=== PATIENT | male | born 1950 | race Caucasian/White ===

== ENCOUNTER 2020-10-23 09:04 | Inpatient (IN) | payer MEDICARE ==
[~2020-10-23] VITALS: Ht 182.9 cm; Wt 108.0 kg
[2020-10-23 09:39] LABS: BASOPHILS % (AUTO) 0.1 % (0.0-5.0); EOSINOPHILS % (AUTO) 2.1 % (0.0-8.0); LYMPHOCYTES % (AUTO) 7.5 % (21.0-51.0); MEAN CORPUSCULAR HGB CONC 32.5 g/dL (32.0-36.0); MEAN CORPUSCULAR VOLUME 95.3 fL (79-99); MONOCYTES % (AUTO) 7.9 % (3.0-13.0); NEUTROPHILS % (AUTO) 80.9 % (40.0-77.0); NUCLEATED RED BLOOD CELLS 0.2 % (0.0-0.19); PLATELET COUNT (AUTO) 180 K/uL (130-400); RED BLOOD CELL COUNT(AUTO) 1.71 MIL/uL (4.50-6.20); RED CELL DISTRIBUTION WIDTH 13.7 % (11.0-15.5)
[2020-10-23 09:51] LABS: INR 1.3 (0.85-1.15); PROTHROMBIN TIME 13.6 SEC (9.6-11.6)
[2020-10-23 09:57] LABS: POTASSIUM 3.6 mmol/L (3.5-5.1)
[2020-10-23 10:01] LABS: ALBUMIN 2.6 g/dL (3.5-5.0); BILIRUBIN,TOTAL 0.4 mg/dL (0.2-1.0); TOTAL PROTEIN, SERUM 5.6 g/dL (6.0-8.3)
[2020-10-23 10:13] LABS: B-TYPE NATRIURETIC PEPTIDE 117 pg/mL (0-100)
[2020-10-23 10:14] LABS: HEMATOCRIT 16.3 % (42-54)
[2020-10-23] MEDS ORDERED: PANTOPRAZOLE 40 MG/VIAL ONE (10:18)
[2020-10-23 11:03] LABS: ABG BASE EXCESS 0.6 mmol/L (-2.0-3.0); ABG HCO3 23.3 mmol/L (21.0-28.0); ABG OXYGEN SATURATION 96.8 % (95.0-99.0); ABG PCO2 32 mmHg (35-48)
[2020-10-23] MEDS ORDERED: AMOX-429 PO (12:37)
[2020-10-23] MEDS ORDERED: ASPI-1005 PO (12:37)
[2020-10-23] MEDS ORDERED: ISOS30TA92 PO (12:37)
[2020-10-23] MEDS ORDERED: GABA-529 PO (12:37)
[2020-10-23] MEDS ORDERED: APIX2.5T PO (12:37)
[2020-10-23] MEDS ORDERED: METF-446 PO (12:37)
[2020-10-23] MEDS ORDERED: IPRATROPIUM/ALBUTEROL SULFATE 3 ML SOLUTION IH PRN (12:45)
[2020-10-23 14:21] LABS: HEMATOCRIT 22.4 % (42-54)
[2020-10-23 16:22] LABS: APPEARANCE,URINE Clear (CLEAR); BILIRUBIN,URINE Negative (NEGATIVE); COLOR,URINE Yellow (YELLOW); GLUCOSE, URINE (UA) Negative (NEGATIVE); KETONES,URINE Trace mg/dL (NEGATIVE); LEUKOCYTE ESTERASE ,URINE Negative (NEGATIVE); NITRATE,URINE Negative (NEGATIVE); OCCULT BLOOD,URINE Negative (NEGATIVE); PH,URINE 5.5 (5.0-8.0); PROTEIN,URINE Negative (NEGATIVE)
[2020-10-23 18:00] VITALS: BP 127/68
[2020-10-23] MEDS ORDERED: LISI20TA24 PO (18:34)
[2020-10-23 20:00] VITALS: BP 116/61
[2020-10-23 21:28] LABS: HEMATOCRIT 18.7 % (42-54)
[2020-10-23] MEDS: AMOX/CLAV 875/125MG TAB PO SCH (22:00)
[2020-10-23] MEDS: GABAPENTIN 300 MG CAPSULE PO SCH (22:01)
[2020-10-23] MEDS: ACETAMINOPHEN 325 MG TAB PO PRN (22:52)
[2020-10-24] VITALS (22 sets, daily range): BP systolic 100–151; BP diastolic 41–98
[2020-10-24] MEDS: PANTOPRAZOLE SODIUM 80 MG in NS 100ML IVP SCH ×2 (01:38→20:56)
[2020-10-24 07:21] LABS: BASOPHILS % (AUTO) 0.2 % (0.0-5.0); EOSINOPHILS % (AUTO) 3.4 % (0.0-8.0); HEMATOCRIT 23.9 % (42-54); LYMPHOCYTES % (AUTO) 12.1 % (21.0-51.0); MEAN CORPUSCULAR HEMOGLOBIN 29.3 pg (27.0-33.0); MEAN CORPUSCULAR HGB CONC 32.2 g/dL (32.0-36.0); MEAN CORPUSCULAR VOLUME 90.9 fL (79-99); NEUTROPHILS % (AUTO) 74.2 % (40.0-77.0); NUCLEATED RED BLOOD CELLS 0.3 % (0.0-0.19); PLATELET COUNT (AUTO) 149 K/uL (130-400); RED BLOOD CELL COUNT(AUTO) 2.63 MIL/uL (4.50-6.20); RED CELL DISTRIBUTION WIDTH 16.1 % (11.0-15.5); WHITE BLOOD COUNT (AUTO) 9.1 K/uL (4.8-10.8)
[2020-10-24 08:06] LABS: POTASSIUM 3.5 mmol/L (3.5-5.1)
[2020-10-24] MEDS ORDERED: PROPOFOL 10 MG/ML 20ML VIAL IV ONE (08:27)
[2020-10-24] MEDS ORDERED: EPINEPHRINE PF 1MG AMP ONE (08:34)
[2020-10-24] MEDS: GABAPENTIN 300 MG CAPSULE PO SCH ×3 (09:00→20:35)
[2020-10-24] MEDS: AMOX/CLAV 875/125MG TAB PO SCH ×2 (09:00→20:35)
[2020-10-24] MEDS ORDERED: PANTOPRAZOLE 40 MG/VIAL IVP SCH (09:45)
[2020-10-24 14:58] LABS: HEMATOCRIT 22.6 % (42-54)
[2020-10-24] MEDS: ACYCLOVIR 200 MG CAPSULE PO SCH (20:34)
[2020-10-24] MEDS: LISINOPRIL 20 MG TABLET PO SCH (20:35)
[2020-10-24] MEDS ORDERED: HONEY 1 APPL/ML TUBE TP ONE (20:43)
[2020-10-24 21:13] LABS: HEMATOCRIT 22.2 % (42-54)
[2020-10-25 00:33] VITALS: BP 92/57
[2020-10-25 03:39] VITALS: BP 121/47
[2020-10-25 08:00] VITALS: BP 116/47
[2020-10-25] MEDS: GABAPENTIN 300 MG CAPSULE PO SCH ×3 (09:24→22:26)
[2020-10-25] MEDS: ACYCLOVIR 200 MG CAPSULE PO SCH ×3 (09:24→22:26)
[2020-10-25] MEDS: ISOSORBIDE MONO 30MG SR TAB PO SCH (09:24)
[2020-10-25] MEDS: AMOX/CLAV 875/125MG TAB PO SCH ×2 (09:24→22:58)
[2020-10-25 11:38] VITALS: BP 95/51
[2020-10-25] MEDS: PANTOPRAZOLE SODIUM 80 MG in NS 100ML IVP SCH ×2 (12:02→22:27)
[2020-10-25 16:00] VITALS: BP 94/50
[2020-10-25 20:00] VITALS: BP 111/49
[2020-10-25] MEDS ORDERED: COMPOUND IV REFRIGERATED 1 EACH IVSOLN MISC PRN (20:45)
[2020-10-25] MEDS ORDERED: COMPOUND IV MISC 1 EACH IVSOLN MISC PRN (20:45)
[2020-10-25] MEDS: LISINOPRIL 20 MG TABLET PO SCH (22:26)
[2020-10-26] VITALS (7 sets, daily range): BP systolic 94–142; BP diastolic 51–64
[2020-10-26 04:35] LABS: BASOPHILS % (AUTO) 0.2 % (0.0-5.0); EOSINOPHILS % (AUTO) 3.1 % (0.0-8.0); HEMATOCRIT 21.6 % (42-54); MEAN CORPUSCULAR HEMOGLOBIN 29.7 pg (27.0-33.0); MEAN CORPUSCULAR HGB CONC 32.9 g/dL (32.0-36.0); MEAN CORPUSCULAR VOLUME 90.4 fL (79-99); MONOCYTES % (AUTO) 10.7 % (3.0-13.0); NEUTROPHILS % (AUTO) 75.2 % (40.0-77.0); PLATELET COUNT (AUTO) 146 K/uL (130-400); RED BLOOD CELL COUNT(AUTO) 2.39 MIL/uL (4.50-6.20); RED CELL DISTRIBUTION WIDTH 15.5 % (11.0-15.5); WHITE BLOOD COUNT (AUTO) 8.9 K/uL (4.8-10.8)
[2020-10-26 05:00] LABS: CREATININE 0.9 mg/dL (0.5-1.5); POTASSIUM 3.7 mmol/L (3.5-5.1)
[2020-10-26] MEDS: GABAPENTIN 300 MG CAPSULE PO SCH ×3 (08:44→20:28)
[2020-10-26] MEDS: ISOSORBIDE MONO 30MG SR TAB PO SCH (08:44)
[2020-10-26] MEDS: AMOX/CLAV 875/125MG TAB PO SCH ×2 (08:45→20:29)
[2020-10-26] MEDS: ACETAMINOPHEN 325 MG TAB PO PRN ×2 (08:45→16:07)
[2020-10-26] MEDS: ACYCLOVIR 200 MG CAPSULE PO SCH ×3 (12:15→20:29)
[2020-10-26] MEDS: CIPROFLOXACIN HCL 0.2%/HYDROCORT 1% 10 ML OTIC SUSP OTIC SCH ×2 (16:08→20:28)
[2020-10-26] MEDS: LISINOPRIL 20 MG TABLET PO SCH (20:29)
[2020-10-27] MEDS: PANTOPRAZOLE SODIUM 80 MG in NS 100ML IVP SCH (01:31)
[2020-10-27 04:25] VITALS: BP 109/61
[2020-10-27 07:22] LABS: BASOPHILS % (AUTO) 0.1 % (0.0-5.0); EOSINOPHILS % (AUTO) 2.1 % (0.0-8.0); HEMATOCRIT 23.4 % (42-54); LYMPHOCYTES % (AUTO) 9.8 % (21.0-51.0); MEAN CORPUSCULAR HEMOGLOBIN 29.4 pg (27.0-33.0); MEAN CORPUSCULAR HGB CONC 32.1 g/dL (32.0-36.0); MEAN CORPUSCULAR VOLUME 91.8 fL (79-99); MONOCYTES % (AUTO) 10.6 % (3.0-13.0); NEUTROPHILS % (AUTO) 76.7 % (40.0-77.0); PLATELET COUNT (AUTO) 148 K/uL (130-400); RED BLOOD CELL COUNT(AUTO) 2.55 MIL/uL (4.50-6.20); RED CELL DISTRIBUTION WIDTH 15.6 % (11.0-15.5); WHITE BLOOD COUNT (AUTO) 8.4 K/uL (4.8-10.8)
[2020-10-27 07:34] LABS: CREATININE 0.9 mg/dL (0.5-1.5); POTASSIUM 3.9 mmol/L (3.5-5.1)
[2020-10-27] MEDS ORDERED: AMOX1TAB16 PO (08:45)
[2020-10-27] MEDS ORDERED: ACYC200C24 PO (08:45)
[2020-10-27] MEDS ORDERED: PANT40TA55 PO (08:45)
[2020-10-27 09:06] VITALS: BP 112/60
[2020-10-27 11:58] VITALS: BP 142/69
[2020-10-27] MEDS: GABAPENTIN 300 MG CAPSULE PO SCH (12:56)
[2020-10-27] MEDS: ISOSORBIDE MONO 30MG SR TAB PO SCH (12:56)
[2020-10-27] MEDS: AMOX/CLAV 875/125MG TAB PO SCH (12:56)
[2020-10-27] MEDS: ACYCLOVIR 200 MG CAPSULE PO SCH (12:56)
[2020-10-27] MEDS: CIPROFLOXACIN HCL 0.2%/HYDROCORT 1% 10 ML OTIC SUSP OTIC SCH (12:58)
[2021-01-07] MEDS ORDERED: FURO40TA5 PO (13:11)
[2021-01-07] MEDS ORDERED: METF-444 PO (13:11)
[2021-01-07] MEDS ORDERED: ATOR40TA71 PO (13:11)
[2021-01-07] MEDS ORDERED: TRAM-355 PO (13:11)
[2021-02-04] MEDS ORDERED: METF-527 PO (13:57)
[2021-05-14] MEDS ORDERED: ATOR20TA65 PO (14:48)
[2021-05-14] MEDS ORDERED: METF-444 PO (14:51)
[2021-05-14] MEDS ORDERED: ISOS30TA92 PO (14:51)
[2021-05-14] MEDS ORDERED: MILK THISTLE PO (14:51)
[2021-05-14] MEDS ORDERED: FOLI0.4T6 PO (14:51)
[2021-05-14] MEDS ORDERED: VITAMIN D3 PO (14:51)
[2021-06-10] MEDS ORDERED: LISI5TAB21 PO (15:13)
== END 2020-10-27 13:30 | disposition home or self-care (01) | DRG 378 ==
LOC: EDH 09:04 → EDHIP 11:12 → 4DH 17:38
PROVIDERS: ADMIT Internal Medicine; ATTEND Internal Medicine
PROC: 30233K1 Transfusion of Nonautologous Frozen Plasma into Peripheral Vein, Percutaneous Approach (ICD-10-PCS; 2020-10-23)
PROC: 30233N1 Transfusion of Nonautologous Red Blood Cells into Peripheral Vein, Percutaneous Approach (ICD-10-PCS; 2020-10-23)
PROC: 0DB68ZX Excision of Stomach, Via Natural or Artificial Opening Endoscopic, Diagnostic (ICD-10-PCS; principal; 2020-10-24)
PROC: 0W3P8ZZ Control Bleeding in Gastrointestinal Tract, Via Natural or Artificial Opening Endoscopic (ICD-10-PCS; 2020-10-24)
DX: K25.4 Chronic or unspecified gastric ulcer with hemorrhage (principal); E87.1 Hypo-osmolality and hyponatremia; D64.9 Anemia, unspecified; D72.829 Elevated white blood cell count, unspecified; I48.91 Unspecified atrial fibrillation; J44.9 Chronic obstructive pulmonary disease, unspecified; I50.9 Heart failure, unspecified; Z20.822 Contact with and (suspected) exposure to COVID-19; E11.9 Type 2 diabetes mellitus without complications; E78.5 Hyperlipidemia, unspecified; F17.210 Nicotine dependence, cigarettes, uncomplicated; G89.29 Other chronic pain; M54.9 Dorsalgia, unspecified; T39.395A Adverse effect of other nonsteroidal anti-inflammatory drugs [NSAID], initial encounter; I11.0 Hypertensive heart disease with heart failure; I95.9 Hypotension, unspecified; T45.515A Adverse effect of anticoagulants, initial encounter; B02.9 Zoster without complications; H66.91 Otitis media, unspecified, right ear; K31.89 Other diseases of stomach and duodenum; Z88.5 Allergy status to narcotic agent; Z79.01 Long term (current) use of anticoagulants; Y92.89 Other specified places as the place of occurrence of the external cause; Z82.49 Family history of ischemic heart disease and other diseases of the circulatory system
CPT/HCPCS: 36415; 36600; 43239; 43255; 71045; 80048; 80053; 81003; 82270; 82803; 83605; 83880; 84145; 84484; 85014; 85018; 85025; 85610; 85730; 86850; 86900; 86901; 86923; 86927; 87426; 88305; 88342; 93005; 93306; 93356; 97039; A4606; C9113; G0378; J0171; J2704; P9016; P9017; U0003

== ENCOUNTER 2020-11-12 13:25 | Observation (INO) | payer MEDICARE ==
[~2020-11-12] VITALS: Ht 182.9 cm; Wt 107.0 kg
[~2020-11-12 13:25] MED LIST: ACYC200C PO; AMOX1TAB16 PO; GABA-529 PO; ISOS30TA92 PO; LISI20TA24 PO; METF-446 PO; PANT40TA55 PO
[2020-11-12 13:57] LABS: BASOPHILS % (AUTO) 0.2 % (0.0-5.0); EOSINOPHILS % (AUTO) 3.5 % (0.0-8.0); HEMATOCRIT 22.3 % (42-54); LYMPHOCYTES % (AUTO) 15.5 % (21.0-51.0); MEAN CORPUSCULAR HEMOGLOBIN 27.2 pg (27.0-33.0); MEAN CORPUSCULAR HGB CONC 31.4 g/dL (32.0-36.0); MEAN CORPUSCULAR VOLUME 86.8 fL (79-99); MONOCYTES % (AUTO) 8.4 % (3.0-13.0); NEUTROPHILS % (AUTO) 72.2 % (40.0-77.0); PLATELET COUNT (AUTO) 161 K/uL (130-400); RED BLOOD CELL COUNT(AUTO) 2.57 MIL/uL (4.50-6.20); RED CELL DISTRIBUTION WIDTH 16.4 % (11.0-15.5); WHITE BLOOD COUNT (AUTO) 5.2 K/uL (4.8-10.8)
[2020-11-12 14:08] LABS: POTASSIUM 4.2 mmol/L (3.5-5.1)
[2020-11-12 14:11] LABS: INR 1.12 (0.85-1.15); PROTHROMBIN TIME 12.1 SEC (9.6-11.6)
[2020-11-12 14:12] LABS: BILIRUBIN,TOTAL 0.4 mg/dL (0.2-1.0); TOTAL PROTEIN, SERUM 6.8 g/dL (6.0-8.3)
[2020-11-12 14:13] LABS: PARTIAL THROMBOPLASTIN TIME 28.8 SEC (26.3-35.5)
[2020-11-12] MEDS ORDERED: ACETAMINOPHEN 325 MG TAB PO PRN ×2 (15:15)
[2020-11-12] MEDS ORDERED: IPRATROPIUM/ALBUTEROL SULFATE 3 ML SOLUTION IH PRN (15:15)
[2020-11-12] MEDS ORDERED: LACTULOSE 20 GM/30 ML UDCUP PO PRN (15:15)
[2020-11-12] MEDS ORDERED: ONDANSETRON HCL 4 MG/2 ML VIAL IV PRN (15:15)
[2020-11-12] MEDS ORDERED: DEXTROSE 50%-WATER 50 ML DISP.SYRIN IV PRN (15:30)
[2020-11-12] MEDS ORDERED: GLUCAGON 1MG KIT 1 MG ML IM PRN (15:30)
[2020-11-12] MEDS ORDERED: FUROSEMIDE 10 MG/ML 2ML VIAL ONE (16:16)
[2020-11-12] MEDS: INSULIN HUMULIN R 100 UNIT/ML 3ML SQ SCH ×2 (16:30→21:00)
[2020-11-12] MEDS ORDERED: FUROSEMIDE 10 MG/ML 2ML VIAL IV SCH (16:30)
[2020-11-12] MEDS ORDERED: SODIUM CHLORIDE 0.9% 1000ML 1,000 ML IV ONE (17:00)
[2020-11-12 19:43] LABS: HEMATOCRIT 25.4 % (42-54)
[2020-11-12] MEDS ORDERED: PANTOPRAZOLE 40 MG/VIAL ONE (20:21)
[2020-11-12] MEDS ORDERED: PANTOPRAZOLE 40 MG/VIAL IVP SCH (21:00)
[2020-11-12 23:45] VITALS: BP 155/83
[2020-11-13 02:20] LABS: HEMATOCRIT 25.7 % (42-54)
[2020-11-13 04:00] VITALS: BP 149/63
[2020-11-13] MEDS: INSULIN HUMULIN R 100 UNIT/ML 3ML SQ SCH (06:46)
[2020-11-13 08:00] VITALS: BP 141/83
[2020-11-13] MEDS ORDERED: PANTOPRAZOLE SODIUM 40 MG TABLET.DR PO SCH (08:10)
[2020-11-13 08:11] LABS: HEMATOCRIT 24.8 % (42-54)
[2020-11-13] MEDS ORDERED: ISOSORBIDE MONO 30MG TAB SR PO SCH (09:00)
[2020-11-13] MEDS ORDERED: GABAPENTIN 100 MG CAPSULE PO SCH (09:00)
[2020-11-13] MEDS ORDERED: LISINOPRIL 20 MG TABLET PO SCH (21:00)
== END 2020-11-13 11:21 | disposition home or self-care (01) ==
LOC: EDH 13:25 → EDHIP 15:13 → INTOOBSV 15:13 → 4DH 23:30
PROVIDERS: ADMIT Internal Medicine; ATTEND Internal Medicine
DX: D64.9 Anemia, unspecified (principal); Z20.828 Contact with and (suspected) exposure to other viral communicable diseases; I11.0 Hypertensive heart disease with heart failure; I50.33 Acute on chronic diastolic (congestive) heart failure; R06.03 Acute respiratory distress; E78.5 Hyperlipidemia, unspecified; I48.91 Unspecified atrial fibrillation; E11.51 Type 2 diabetes mellitus with diabetic peripheral angiopathy without gangrene; J44.9 Chronic obstructive pulmonary disease, unspecified; G89.29 Other chronic pain; Z87.11 Personal history of peptic ulcer disease; Z86.19 Personal history of other infectious and parasitic diseases; Z87.891 Personal history of nicotine dependence; Z79.01 Long term (current) use of anticoagulants; Z79.84 Long term (current) use of oral hypoglycemic drugs; Z79.899 Other long term (current) drug therapy; Z88.5 Allergy status to narcotic agent
CPT/HCPCS: 36415 ×2; 36430; 71045; 80053; 82270; 82550; 82948 ×2; 83605; 83880; 84484; 85014 ×3; 85018 ×3; 85025; 85610; 85730; 86850; 86900; 86901; 86923 ×2; 87426; 93005; 94664; 99285; C9113; G0378 ×20; J1940; J7030; P9016; U0003

== ENCOUNTER → 2020-12-05 | Outpatient (CLI) | payer MEDICARE | END | disposition home or self-care (01) | LOC: RAH 11-27 12:45 | PROVIDERS: ATTEND Otolaryngology Plastic Surgery within the Head & Neck | DX: H70.891 Other mastoiditis and related conditions, right ear (principal) | CPT/HCPCS: 70480 ==

== ENCOUNTER 2021-01-08 07:00 | Day surgery (SDC) | payer MEDICARE ==
[2021-01-01 12:33] LABS: BASOPHILS % (AUTO) 0.1 % (0.0-5.0); EOSINOPHILS % (AUTO) 5.1 % (0.0-8.0); HEMATOCRIT 34.6 % (42-54); LYMPHOCYTES % (AUTO) 11.8 % (21.0-51.0); MEAN CORPUSCULAR HEMOGLOBIN 24.2 pg (27.0-33.0); MEAN CORPUSCULAR HGB CONC 29.5 g/dL (32.0-36.0); MONOCYTES % (AUTO) 10.1 % (3.0-13.0); NEUTROPHILS % (AUTO) 72.5 % (40.0-77.0); PLATELET COUNT (AUTO) 164 K/uL (130-400); RED BLOOD CELL COUNT(AUTO) 4.22 MIL/uL (4.50-6.20); RED CELL DISTRIBUTION WIDTH 17.3 % (11.0-15.5); WHITE BLOOD COUNT (AUTO) 7.4 K/uL (4.8-10.8)
[2021-01-01 12:40] LABS: CREATININE 0.9 mg/dL (0.5-1.5)
[2021-01-07 12:45] VITALS: BP 176/93
[2021-01-08] VITALS (18 sets, daily range): BP systolic 141–171; BP diastolic 56–87
[~2021-01-08] VITALS: Ht 182.9 cm; Wt 100.3 kg
[~2021-01-08 07:00] MED LIST changes: -ACYC200C PO; -AMOX1TAB16 PO; +ATOR40TA71 PO; +FURO40TA5 PO; -LISI20TA24 PO; +METF-444 PO; -METF-446 PO; +TRAM-355 PO
[2021-01-08] MEDS ORDERED: 0.9%NACL 1000ML 1,000 ML IV ONE (07:40)
[2021-01-08] MEDS ORDERED: GABA300C PO (07:50)
[2021-01-08] MEDS ORDERED: EPINEPHRINE 1 MG/ML 30ML VIAL IJ ONE (08:16)
[2021-01-08] MEDS ORDERED: LIDOCAINE 1%-EPI 1:100,000 20 ML VIAL IJ ONE (08:16)
[2021-01-08] MEDS ORDERED: BACITRACIN 28.4 GM OINT TP ONE (08:16)
[2021-01-08] MEDS ORDERED: LIDOCAINE PF 100MG/5ML (2%) SYRINGE 5ML ONE (08:19)
[2021-01-08] MEDS ORDERED: SUCCINYLCHOLINE CHLORIDE 20 MG/ML 10 ML VIAL ONE (08:19)
[2021-01-08] MEDS ORDERED: PROPOFOL 10 MG/ML 20ML VIAL IV ONE (08:20)
[2021-01-08] MEDS ORDERED: FENTANYL CITRATE PF 50 MCG/1 ML 2ML VIAL ONE (08:20)
[2021-01-08] MEDS ORDERED: ROCURONIUM 10MG/1ML SYR 10 MG/ML ML ONE (08:20)
[2021-01-08] MEDS ORDERED: LIDOCAINE HCL 1% 20 ML VIAL ONE (08:27)
[2021-01-08] MEDS ORDERED: EPINEPHRINE PF 1MG AMP ONE (08:27)
[2021-01-08] MEDS ORDERED: THROMBIN-JMI 5000 UNIT/VIAL TP ONE (08:28)
[2021-01-08] MEDS ORDERED: CIPROFLOXACIN HCL/DEXAMETH 7.5 ML DROPS.SUSP OTIC ONE (09:25)
[2021-01-08] MEDS ORDERED: PHENYLEPHRINE HCL 10 MG/ML 1ML VIAL IV ONE (09:49)
[2021-01-08] MEDS ORDERED: GLYCOPYRROLATE 1 MG/5 ML SYRINGE ONE (10:17)
[2021-01-08] MEDS ORDERED: NEOSTIGMINE 5MG/5ML SYR IV ONE (10:17)
[2021-01-08] MEDS ORDERED: ONDANSETRON 4MG INJ ONE (10:18)
[2021-01-08] MEDS ORDERED: SUGAMMADEX SODIUM 200 MG/2 ML VIAL IV ONE (10:40)
[2021-02-04] MEDS ORDERED: METF-527 PO ×2 (13:57)
[2021-05-14] MEDS ORDERED: ATOR20TA65 PO (14:48)
[2021-05-14] MEDS ORDERED: ISOS30TA92 PO (14:51)
[2021-05-14] MEDS ORDERED: METF-444 PO (14:51)
[2021-05-14] MEDS ORDERED: MILK THISTLE PO (14:51)
[2021-05-14] MEDS ORDERED: FOLI0.4T6 PO (14:51)
[2021-05-14] MEDS ORDERED: VITAMIN D3 PO (14:51)
[2021-06-10] MEDS ORDERED: LISI5TAB21 PO (15:13)
== END 2021-01-08 12:45 | disposition home or self-care (01) ==
LOC: DAH 07:00
PROVIDERS: ATTEND Otolaryngology Plastic Surgery within the Head & Neck
DX: H70.11 Chronic mastoiditis, right ear (principal); Z20.822 Contact with and (suspected) exposure to COVID-19; H72.91 Unspecified perforation of tympanic membrane, right ear; I10 Essential (primary) hypertension; E78.5 Hyperlipidemia, unspecified; K21.9 Gastro-esophageal reflux disease without esophagitis; E11.9 Type 2 diabetes mellitus without complications; F17.200 Nicotine dependence, unspecified, uncomplicated; Z86.73 Personal history of transient ischemic attack (TIA), and cerebral infarction without residual deficits; Z98.890 Other specified postprocedural states; Z88.6 Allergy status to analgesic agent; Z79.899 Other long term (current) drug therapy; Z79.84 Long term (current) use of oral hypoglycemic drugs
CPT/HCPCS: 36415; 69645; 80048; 82948 ×2; 85025; 88305; 93005; A4215; A4221; A4222; A4223; A4452; A4649; A4663; A6446; C9803; J0171 ×2; J0330; J2001; J2370; J2405; J2704; J2710; J3010; J3490 ×2; J7030; J7040; U0003

== ENCOUNTER 2021-02-05 05:51 | Day surgery (SDC) | payer MEDICARE ==
[~2021-02-05] VITALS: Ht 157.5 cm; Wt 99.3 kg
[~2021-02-05 05:51] MED LIST changes: -GABA-529 PO; +GABA300C PO; -ISOS30TA92 PO; -METF-444 PO; +METF-527 PO
[2021-02-05 06:31] VITALS: BP 155/80
[2021-02-05] MEDS ORDERED: PROPOFOL 10 MG/ML 20ML VIAL IV ONE (06:31)
[2021-02-05] MEDS ORDERED: SODIUM CHLORIDE 0.9% 1000ML 1,000 ML IV ONE (07:02)
[2021-02-05 07:40] VITALS: BP 139/72
[2021-02-05 07:45] VITALS: BP 141/78
[2021-02-05 07:50] VITALS: BP 142/63
[2021-02-05 07:55] VITALS: BP 140/76
== END 2021-02-05 08:00 | disposition home or self-care (01) ==
LOC: DAH 05:51 → ENDO 05:51
PROVIDERS: ATTEND Internal Medicine Gastroenterology
DX: K25.7 Chronic gastric ulcer without hemorrhage or perforation (principal); K29.70 Gastritis, unspecified, without bleeding; Z20.828 Contact with and (suspected) exposure to other viral communicable diseases
CPT/HCPCS: 43239; 82948 ×2; 93005; A4215 ×2; A4221; A4222; A4223; A4606; A4620; A4657; A4663; C9803; J2704; J7030; U0003

== ENCOUNTER → 2021-03-28 | Outpatient (CLI) | payer MEDICARE | END | disposition home or self-care (01) | LOC: RAH 13:50 | PROVIDERS: ATTEND Internal Medicine Cardiovascular Disease | DX: I48.0 Paroxysmal atrial fibrillation (principal) | CPT/HCPCS: 71046 ==

== ENCOUNTER → 2021-04-29 | Outpatient (CLI) | payer MEDICARE ==
[~2021-04-29] VITALS: Ht 167.6 cm; Wt 96.6 kg
[~2021-04-29] MED LIST changes: +REGADENOSON 0.4 MG/5 ML PF SYG IVP SCH
== END | disposition home or self-care (01) ==
LOC: SHCH 08:57
PROVIDERS: ATTEND Internal Medicine Cardiovascular Disease
DX: I51.7 Cardiomegaly (principal); I48.19 Other persistent atrial fibrillation; R06.09 Other forms of dyspnea
CPT/HCPCS: 78452; 93017; 96374; A9500 ×2; J2785

== ENCOUNTER → 2021-04-30 | Outpatient (CLI) | payer MEDICARE ==
[~2021-04-30] MED LIST changes: -REGADENOSON 0.4 MG/5 ML PF SYG IVP SCH
== END | disposition home or self-care (01) ==
LOC: RAH 08:55
PROVIDERS: ATTEND Internal Medicine Cardiovascular Disease
DX: I48.19 Other persistent atrial fibrillation (principal)
CPT/HCPCS: 93306; 93356

== ENCOUNTER 2021-05-15 05:49 | Day surgery (SDC) | payer MEDICARE ==
[2021-05-08 09:38] LABS: BASOPHILS % (AUTO) 0.2 % (0.0-5.0); EOSINOPHILS % (AUTO) 6.4 % (0.0-8.0); HEMATOCRIT 35.4 % (42-54); LYMPHOCYTES % (AUTO) 23.4 % (21.0-51.0); MEAN CORPUSCULAR HEMOGLOBIN 23.7 pg (27.0-33.0); MEAN CORPUSCULAR HGB CONC 28.2 g/dL (32.0-36.0); MEAN CORPUSCULAR VOLUME 83.9 fL (79-99); MONOCYTES % (AUTO) 11.2 % (3.0-13.0); NEUTROPHILS % (AUTO) 58.6 % (40.0-77.0); PLATELET COUNT (AUTO) 134 K/uL (130-400); RED BLOOD CELL COUNT(AUTO) 4.22 MIL/uL (4.50-6.20); RED CELL DISTRIBUTION WIDTH 17.9 % (11.0-15.5); WHITE BLOOD COUNT (AUTO) 5.3 K/uL (4.8-10.8)
[2021-05-08 09:40] LABS: APPEARANCE,URINE Clear (CLEAR); BILIRUBIN,URINE Negative (NEGATIVE); COLOR,URINE Yellow (YELLOW); GLUCOSE, URINE (UA) Negative (NEGATIVE); KETONES,URINE Negative (NEGATIVE); LEUKOCYTE ESTERASE ,URINE Negative (NEGATIVE); NITRATE,URINE Negative (NEGATIVE); OCCULT BLOOD,URINE Negative (NEGATIVE); PH,URINE 5.5 (5.0-8.0); PROTEIN,URINE Negative (NEGATIVE); UROBILINOGEN,URINE 0.2 mg/dL (0.2-1.0)
[2021-05-08 09:48] LABS: POTASSIUM 5.1 mmol/L (3.5-5.1)
[2021-05-08 09:52] LABS: INR 1.15 (0.85-1.15); PROTHROMBIN TIME 12.4 SEC (9.6-11.6)
[2021-05-08 09:54] LABS: PARTIAL THROMBOPLASTIN TIME 29.6 SEC (26.3-35.5)
[~2021-05-15] VITALS: Ht 182.9 cm; Wt 97.5 kg
[2021-05-15] VITALS (21 sets, daily range): BP systolic 125–157; BP diastolic 62–94
[~2021-05-15 05:49] MED LIST changes: +ATOR20TA65 PO; -ATOR40TA71 PO; +FOLI0.4T6 PO; +ISOS30TA92 PO; +METF-444 PO; -METF-527 PO; +MILK THISTLE PO; +VITAMIN D3 PO
[2021-05-15] MEDS ORDERED: 0.9%NACL 1000ML 1,000 ML IV ONE (06:15)
[2021-05-15] MEDS ORDERED: HEPARIN 10,000 UNIT/10ML (1,000 UNIT/ML) VIAL ONE (07:13)
[2021-05-15] MEDS ORDERED: HEPARIN 1,000 UNIT VIAL ONE (07:13)
[2021-05-15] MEDS ORDERED: IOHEXOL 350 MG/ML 100ML INFUS..BTL IV ONE (07:14)
[2021-05-15] MEDS ORDERED: IOHEXOL-350 50ML VIAL IV ONE (07:14)
[2021-05-15] MEDS ORDERED: LIDOCAINE HCL 400MG/20ML VIAL ONE (07:14)
[2021-05-15] MEDS ORDERED: LABETALOL 20MG VIAL IV ONE (07:47)
[2021-05-15] MEDS ORDERED: DEXTROSE 50%-WATER 50 ML DISP.SYRIN IV PRN (08:00)
[2021-05-15] MEDS ORDERED: 0.9%NACL 10ML VIAL IVP SCH (08:00)
[2021-05-15] MEDS ORDERED: 0.9%NACL 1000ML 1,000 ML IV SCH (08:00)
[2021-05-15] MEDS ORDERED: ATROPINE 1MG SYG IVP ONE (08:34)
[2021-05-15] MEDS ORDERED: INSULIN HUMULIN R 100 UNIT/ML 3ML SQ SCH (11:30)
== END 2021-05-15 17:19 | disposition home or self-care (01) ==
LOC: DAH 05:49
PROVIDERS: ATTEND Internal Medicine Cardiovascular Disease
DX: I25.119 Atherosclerotic heart disease of native coronary artery with unspecified angina pectoris (principal); J44.9 Chronic obstructive pulmonary disease, unspecified; F17.210 Nicotine dependence, cigarettes, uncomplicated; Z82.49 Family history of ischemic heart disease and other diseases of the circulatory system; Z88.6 Allergy status to analgesic agent; Z72.89 Other problems related to lifestyle; Z98.890 Other specified postprocedural states; Z79.01 Long term (current) use of anticoagulants
CPT/HCPCS: 36415; 71045; 80048; 81003; 82948 ×3; 85025; 85610; 85730; 93005; 93458; A4215; A4216; A4221; A4223 ×3; A4606; A4615; A4663; A6260; C1894; J1644 ×2; J3490 ×2; J7030; Q9965; Q9967 ×2; J0461

== ENCOUNTER 2021-06-11 05:55 | Day surgery (SDC) | payer MEDICARE ==
[~2021-06-11] VITALS: Ht 182.9 cm; Wt 97.5 kg
[~2021-06-11 05:55] MED LIST changes: +LISI-809 PO
[2021-06-11] MEDS ORDERED: 0.9%NACL 1000ML 1,000 ML IV ONE (06:15)
[2021-06-11 06:34] VITALS: BP 111/61
[2021-06-11] MEDS ORDERED: PROPOFOL 10 MG/ML 20ML VIAL IV ONE (07:33)
[2021-06-11] MEDS ORDERED: LIDOCAINE HCL 400MG/20ML VIAL ONE (07:33)
[2021-06-11 07:55] VITALS: BP 98/51
[2021-06-11 08:00] VITALS: BP 118/69
[2021-06-11 08:05] VITALS: BP 103/79
[2021-06-11 08:15] VITALS: BP 138/83
== END 2021-06-11 08:36 | disposition home or self-care (01) ==
LOC: DAH 05:55
PROVIDERS: ATTEND Internal Medicine Gastroenterology
DX: D50.0 Iron deficiency anemia secondary to blood loss (chronic) (principal); Z20.822 Contact with and (suspected) exposure to COVID-19; K29.50 Unspecified chronic gastritis without bleeding; K44.9 Diaphragmatic hernia without obstruction or gangrene; I11.0 Hypertensive heart disease with heart failure; I50.9 Heart failure, unspecified; J43.9 Emphysema, unspecified; I48.91 Unspecified atrial fibrillation; M19.90 Unspecified osteoarthritis, unspecified site; F17.200 Nicotine dependence, unspecified, uncomplicated; E78.5 Hyperlipidemia, unspecified; E11.9 Type 2 diabetes mellitus without complications; Z86.73 Personal history of transient ischemic attack (TIA), and cerebral infarction without residual deficits; Z79.84 Long term (current) use of oral hypoglycemic drugs; Z79.899 Other long term (current) drug therapy
CPT/HCPCS: 43239; 45378; 82948; 87635; 93005; A4215 ×2; A4221; A4222; A4223; A4606; A4620; A4657; A4663; C9803; J2704; J3490; J7030

== ENCOUNTER 2021-06-12 09:56 | Day surgery (SDC) | payer MEDICARE ==
[~2021-06-12] VITALS: Ht 182.9 cm; Wt 97.5 kg
[2021-06-12] VITALS (8 sets, daily range): BP systolic 96–156; BP diastolic 52–85
[2021-06-12] MEDS ORDERED: 0.9%NACL 1000ML 1,000 ML IV ONE (11:24)
[2021-06-12] MEDS ORDERED: LIDOCAINE HCL 400MG/20ML VIAL ONE (12:33)
[2021-06-12] MEDS ORDERED: PROPOFOL 10 MG/ML 20ML VIAL IV ONE (12:33)
== END 2021-06-12 13:30 | disposition home or self-care (01) ==
LOC: ENDO 09:56
PROVIDERS: ATTEND Internal Medicine
DX: D50.0 Iron deficiency anemia secondary to blood loss (chronic) (principal); Z20.822 Contact with and (suspected) exposure to COVID-19; K57.30 Diverticulosis of large intestine without perforation or abscess without bleeding; K56.699 Other intestinal obstruction unspecified as to partial versus complete obstruction; J43.9 Emphysema, unspecified; E11.9 Type 2 diabetes mellitus without complications; I11.0 Hypertensive heart disease with heart failure; I50.9 Heart failure, unspecified; M19.90 Unspecified osteoarthritis, unspecified site; I48.91 Unspecified atrial fibrillation; E78.5 Hyperlipidemia, unspecified; Z98.890 Other specified postprocedural states; Z72.89 Other problems related to lifestyle; Z88.6 Allergy status to analgesic agent; Z86.73 Personal history of transient ischemic attack (TIA), and cerebral infarction without residual deficits
CPT/HCPCS: 45378; 82948 ×2; A4215 ×2; A4221; A4222; A4223; A4606; A4620; A4657; A4663; J2704; J3490; J7030

== ENCOUNTER → 2022-05-13 | Outpatient (CLI) | payer MEDICARE ==
[~2022-05-13] MED LIST changes: -LISI-809 PO; +LISI5TAB21 PO
== END | disposition home or self-care (01) ==
LOC: SHCH 14:30
PROVIDERS: ATTEND Internal Medicine Cardiovascular Disease
DX: I87.2 Venous insufficiency (chronic) (peripheral) (principal)
CPT/HCPCS: 93970